=== PATIENT | male | born 1960 | race African-American/Black ===

== ENCOUNTER 2018-05-23 13:23 | Inpatient (IN) | payer OTHER ==
[2018-05-23 14:21] VITALS: BMI 37.6
--- NOTE | 2018-05-23 19:57 | HP ---
CIWA Score - Admission Criteria OASAS Guidelines: Admission for Medically Managed Detox: Requires at least one of the followin. CIWA greater than 12 2. Seizures within the past 24 hours 3. Delirium tremens within the past 24 hours 4. Hallucinations within the past 24 hours 5. Acute intervention needed for co occurring medical disorder 6. Acute intervention needed for co occurring psychiatric disorder 7. Severe withdrawal that cannot be handled at a lower level of care (continued vomiting, continued diarrhea, abnormal vital signs) requiring intravenous medication and/or fluids 8. Admission ROS S - HPI Chief Complaint: Seeking admission to Rehab. Allergies/Adverse Reactions: Allergies Allergy/AdvReac Type Severity Reaction Status Date / Time No Known Allergies Allergy Verified 05/23/18 17:07 History of Present Illness: 58 years old male is seeking admission to Rehab. This is his first admission to [facility]. He has been in previous Rehab at [place], [place]. He denies past medical history and suicidal ideation at this time. Exam Limitations: No Limitations - Ebola screening Have you traveled outside of the country in the last 21 days: No Have you had contact with anyone from an Ebola affected area: No Have you been sick,other than usual withdrawal symptoms: No Do you have a fever: No - Review of Systems Constitutional: No Symptoms Reported EENT: reports: No Symptoms Reported Respiratory: reports: No Symptoms reported Cardiac: reports: No Symptoms Reported GI: reports: No Symptoms Reported : reports: No Symptoms Reported Musculoskeletal: reports: No Symptoms Reported Integumentary: reports: No Symptoms Reported Neuro: reports: No Symptoms reported Endocrine: reports: No Symptoms Reported Hematology: reports: No Symptoms Reported Psychiatric: reports: No Sypmtoms Reported, Mood/Affect Appropiate, Orientated x3 Other Systems: Reviewed and Negative Patient History - Patient Medical History Hx Asthma: No Hx Chronic Obstructive Pulmonary Disease (COPD): No Hx Cardiac Disorders: No Hx Hypertension: No Hx Seizures: No Hx Diabetes: No Hx Gastrointestinal Disorders: No Hx Genitourinary Disorders: No Hx Sexually Transmitted Disorders: No Hx Renal Disease (ESRD): No Hx Depression: No Hx Suicide Attempt: No Hx Schizophrenia: No - Patient Surgical History Past Surgical History: Yes Hx Neurologic Surgery: No Hx Cataract Extraction: No Hx Cardiac Surgery: No Hx Lung Surgery: No Hx Breast Surgery: No Hx Breast Biopsy: No Hx Abdominal Surgery: Yes (umbilical hernia repair/exploratory sx) Hx Appendectomy: No Hx Cholecystectomy: No Hx Genitourinary Surgery: No Hx Section: No Hx Orthopedic Surgery: No Anesthesia Reaction: No - PPD History Previous Implant?: Yes Documented Results: Negative w/o proof Implanted On Prior [facility] Admission?: No PPD to be Administered?: Yes - Reproductive History Patient is a Female of Child Bearing Age (11 -55 yrs old): No (MALE) - Smoking Cessation Smoking history: Never smoked Have you smoked in the past 12 months: No Hx Chewing Tobacco Use: No Initiated information on smoking cessation: No - Substance & Tx. History Hx Alcohol Use: No Hx Substance Use: Yes Substance Use Type: Opiates Hx Substance Use Treatment: Yes ([place], [place]) - Substances Abused Heroin Route: Inhalation Frequency: Daily Amount used: 7 bags Age of first use: 33 Date of Last Use: 05/18/18 Xanax Route: Oral Frequency: 3-6 times per week Amount used: 6 mg. Age of first use: 57 Date of Last Use: 05/17/18 Family Disease History - Family Disease History Family History: Denies Admission Physical Exam [facility] - Vital Signs Vital Signs: Vital Signs - 24 hr 05/23/18 14:20 Temperature 97.1 F L Pulse Rate 69 Respiratory 18 Rate Blood Pressure 136/79 - Physical General Appearance: Yes: Within Normal Limits HEENTM: Yes: Within Normal Limits, EOMI, Normal ENT Inspection, Normal Voice, RODRIGUEZ, Other (uses prescription eyeglasses) Respiratory: Yes: Lungs Clear, Normal Breath Sounds, No Respiratory Distress Neck: Yes: Supple Breast: Yes: Breast Exam Deferred Cardiology: Yes: Regular Rhythm, Regular Rate Abdominal: Yes: Normal Bowel Sounds Genitourinary: Yes: Within Normal Limits Back: Yes: Normal Inspection Musculoskeletal: Yes: Within Normal Limits Extremities: Yes: Normal Inspection Neurological: Yes: Alert, Normal Mood/Affect Integumentary: Yes: Within Normal Limits, Warm Lymphatic: Yes: Within Normal Limits - Diagnostic (1) Opioid dependence Current Visit: Yes Status: Chronic Qualifiers: Substance use status: uncomplicated Qualified Code(s): F11.20 - Opioid dependence, uncomplicated (2) Benzodiazepine dependence Current Visit: Yes Status: Chronic Cleared for Admission [facility] - Detox or Rehab [facility] Level of Care: Observation Bed Claeared for Rehab Admission: Yes [facility] Breath Alcohol Content Breath Alcohol Content: 0 Urine Drug Screen - Results Drug Screen Negative: No Urine Drug Screen Results: BZO-Benzodiazepines, MTD-Methadone Inpatient Rehab Admission - Initial Determination Are CD services needed?: Yes Free of communicable disease: Yes Not in need of hospitalization: Yes - Rehab Admission Criteria Previous failed treatment: Yes Poor recovery environment: Yes Comorbidities: Yes Lacks judgement: No Patient is meeting Inpatient Rehab admission criteria:: Yes
[2018-05-23] MEDS ORDERED: MAGNESIUM CITRATE 300 ML BOTTLE PO PRN (20:01)
[2018-05-23] MEDS ORDERED: guaiFENesin/D-METHORPHAN HB 10 ML UNIT-DOSE CUPS PO PRN (20:01)
[2018-05-23] MEDS ORDERED: P-EPHED 60MG/TRIPROLIDI 2.5MG TABLET PO PRN (20:01)
[2018-05-23] MEDS ORDERED: MAG HYDROX/AL HYDROX/SIMETH 30 ML UNIT-DOSE CUP PO PRN (20:01)
[2018-05-23] MEDS ORDERED: MAGNESIUM HYDROX 2400MG/30ML ORAL SUSPENSION 30 ML CUP PO PRN (20:01)
[2018-05-23] MEDS ORDERED: MENTHOL/PHENOL 1 EACH UD MM PRN (20:01)
[2018-05-23] MEDS ORDERED: IBUPROFEN 400 MG TABLET (FP) PO PRN (20:01)
[2018-05-23] MEDS ORDERED: ACETAMINOPHEN 325 MG TABLET (FP) PO PRN (20:01)
[2018-05-23] MEDS ORDERED: LOPERAMIDE HCL 2 MG CAPSULE PO PRN (20:01)
[2018-05-23] MEDS ORDERED: TUBERCULIN PPD 5 TU/0.1ML VIAL ID ONE (21:22)
[2018-05-23] MEDS: THIAMINE HCL 100 MG TABLET (FP) PO SCH (21:36)
[2018-05-23] MEDS: PREGABALIN 100 MG CAPSULE PO SCH (21:36)
[2018-05-23] MEDS ORDERED: MELATONIN 5 MG TABLETS PO PRN (22:00)
[2018-05-23 23:22] LABS: URINE APPEARANCE CLEAR; URINE BILIRUBIN NEGATIVE (<2.0 mg/dL); URINE COLOR YELLOW; URINE GLUCOSE (UA) NEGATIVE (NEGATIVE); URINE KETONE NEGATIVE (NEGATIVE); URINE LEUK ESTERASE NEGATIVE (NEGATIVE); URINE NITRITE NEGATIVE (NEGATIVE); URINE PROTEIN NEGATIVE (NEGATIVE); URINE UROBILINOGEN NEGATIVE mg/dL (0.2-1.0)
[2018-05-24] MEDS: PREGABALIN 100 MG CAPSULE PO SCH (07:00)
[2018-05-24] MEDS: PRENATAL VITAMINS W/ FOLIC ACID TABLET (FP) PO SCH (11:07)
[2018-05-24 11:21] LABS: ALBUMIN 4.4 g/dl (3.4-5.0); ALK PHOS 80 U/L (45-117); ANION GAP 13 MMOL/L (8-16); BILIRUBIN,TOTAL 0.7 mg/dL (0.2-1); BLOOD UREA NITROGEN 22 mg/dL (7-18); CALCIUM 9.1 mg/dL (8.5-10.1); CHLORIDE 100 mmol/L (98-107); CO2 23 mmol/L (21-32); CREATININE 1.1 mg/dL (0.55-1.3); GLUCOSE,RANDOM 95 mg/dL (74-106); POTASSIUM 4.8 mmol/L (3.5-5.1); SGOT/AST 21 U/L (15-37); SGPT/ALT 21 U/L (13-61); SODIUM 136 mmol/L (136-145); TOT PROT 8.2 g/dl (6.4-8.2)
--- NOTE | 2018-05-24 11:47 | HP ---
Psychiatrist Admission - Data Date of interview: 05/24/18 Admission source: [facility] Identifying data: Patient is a 58 year old male, father of three, unemployed, domiciled, and is supported by [facility]. This is patient's first admission to rehab at [facility]. Patient admitted to for benzodiazepine dependence and opioid dependence. Medical History: umbilical hernia repair/exploratory sx Psychiatric History: Patient denies h/o psychiatric hospitalization, outpatient care, and suicide attempt. He reports accepting seroquel for insomnia when admitted to other detox/rehab facilities. Physical/Sexual Abuse/Trauma History: denies. Vital Signs: Vital Signs - 24 hr 05/23/18 05/23/18 05/24/18 14:20 22:25 00:30 Temperature 97.1 F L 98.6 F Pulse Rate 69 90 Respiratory 18 18 18 Rate Blood Pressure 136/79 142/83 05/24/18 05/24/18 03:30 07:06 Temperature 97.6 F Pulse Rate 67 Respiratory 18 17 Rate Blood Pressure 122/58 L Allergies/Adverse Reactions: Allergies Allergy/AdvReac Type Severity Reaction Status Date / Time No Known Allergies Allergy Verified 05/23/18 17:07 Date of last physical exam: 05/24/18 Concur with the findings of this exam: Yes - Substance Abuse/Tx History Hx Alcohol Use: Yes (Occasionally) Hx Substance Use: Yes (Heroin- 5-6 bags daily Xanac- 6 mg daily) Substance Use Type: Heroin Hx Substance Use Treatment: Yes (This is patient's first rehab.) Mental Status Exam - Mental Status Exam Alert and Oriented to: Time, Place, Person Cognitive Function: Good Patient Appearance: Well Groomed Mood: Hopeful Affect: Appropriate Patient Behavior: Appropriate, Cooperative Speech Pattern: Clear, Appropriate Voice Loudness: Normal Thought Process: Intact, Goal Oriented Thought Disorder: Not Present Hallucinations: Denies Suicidal Ideation: Denies Homicidal Ideation: Denies Insight/Judgement: Poor Sleep: Fair Appetite: Fair Muscle strength/Tone: Normal Gait/Station: Normal Psychiatric Findings - Problem List ([place] 1, 2,3) (1) Substance-induced sleep disorder Current Visit: Yes Status: Acute (2) Benzodiazepine dependence Current Visit: Yes Status: Chronic (3) Opioid dependence Current Visit: Yes Status: Chronic Qualifiers: Substance use status: uncomplicated Qualified Code(s): F11.20 - Opioid dependence, uncomplicated - Initial Treatment Plan Initial Treatment Plan: Psychoeducation provided. Detoxification in progress. Will order Seroquel 50mg qhs. Benefits and side effects discussed.
[2018-05-24] MEDS: PREGABALIN 50 MG CAPSULE PO SCH ×2 (14:15→22:06)
[2018-05-24] MEDS: THIAMINE HCL 100 MG TABLET (FP) PO SCH (22:04)
[2018-05-24] MEDS: QUEtiapine FUMARATE 50 MG TABLET PO SCH (22:06)
[2018-05-25] MEDS: PREGABALIN 50 MG CAPSULE PO SCH ×3 (06:51→21:59)
[2018-05-25] MEDS: PRENATAL VITAMINS W/ FOLIC ACID TABLET (FP) PO SCH (10:35)
[2018-05-25 16:01] LABS: HEMATOCRIT 45.4 % (35.4-49); HEMOGLOBIN 14.2 GM/dL (11.7-16.9); MCH 25.2 pg (25.7-33.7); MCHC 31.2 g/dl (32.0-35.9); MEAN CELL VOLUME 80.5 fl (80-96); MEAN PLT VOLUME 8.3 fl (7.5-11.1); PLATELET COUNT 280 K/MM3 (134-434); RBC 5.64 M/mm3 (4.00-5.60); RDW 15.9 % (11.9-15.9); WHITE BLOOD COUNT 4.8 K/mm3 (4.0-10.0)
[2018-05-25] MEDS: THIAMINE HCL 100 MG TABLET (FP) PO SCH (21:59)
[2018-05-25] MEDS: QUEtiapine FUMARATE 50 MG TABLET PO SCH (21:59)
[2018-05-26] MEDS: PREGABALIN 50 MG CAPSULE PO SCH (06:35)
[2018-05-26] MEDS: PRENATAL VITAMINS W/ FOLIC ACID TABLET (FP) PO SCH (10:13)
[2018-05-26] MEDS ORDERED: PREGABALIN 100 MG CAPSULE PO SCH ×2 (13:23→22:00)
[2018-05-26] MEDS ORDERED: PREGABALIN 50 MG CAPSULE PO SCH (14:00)
[2018-05-26] MEDS: THIAMINE HCL 100 MG TABLET (FP) PO SCH (21:54)
[2018-05-26] MEDS: PREGABALIN 100 MG CAPSULE PO SCH (21:54)
[2018-05-26] MEDS: QUEtiapine FUMARATE 50 MG TABLET PO SCH (21:54)
[2018-05-27] MEDS: PREGABALIN 100 MG CAPSULE PO SCH ×3 (07:00→21:49)
[2018-05-27] MEDS: PRENATAL VITAMINS W/ FOLIC ACID TABLET (FP) PO SCH (10:29)
[2018-05-27] MEDS: QUEtiapine FUMARATE 50 MG TABLET PO SCH (21:49)
[2018-05-27] MEDS: THIAMINE HCL 100 MG TABLET (FP) PO SCH (21:50)
[2018-05-28] MEDS: PREGABALIN 100 MG CAPSULE PO SCH ×3 (06:55→21:48)
[2018-05-28] MEDS: PRENATAL VITAMINS W/ FOLIC ACID TABLET (FP) PO SCH (11:29)
--- NOTE | 2018-05-28 13:35 | PN ---
[facility] Progress Note Note: PATIENT C/O SORE THROAT, NASAL CONGESTION WITH YELLOW NASAL DISCHARGE AND DRY COUGH. PATIENT DENIES TOBACCO USE, FEVER, SOB. Vital Signs Temperature 98.5 F 05/28/18 07:09 Pulse Rate 67 05/28/18 07:09 Respiratory Rate 20 05/28/18 07:09 Blood Pressure 131/94 05/28/18 07:09 O2 Sat by Pulse Oximetry (%) Laboratory Tests 05/23/18 05/24/18 05/24/18 22:00 07:40 07:40 WBC Cancelled Corrected WBC (auto) Cancelled RBC Cancelled Hgb Cancelled Hct Cancelled MCV Cancelled MCH Cancelled MCHC Cancelled RDW Cancelled Plt Count Cancelled MPV Cancelled Manual Slide Review Cancelled Platelet Comment Cancelled Sodium 136 Potassium 4.8 Chloride 100 Carbon Dioxide 23 Anion Gap 13 BUN 22 H Creatinine 1.1 Creat Clearance w eGFR > 60 Random Glucose 95 Calcium 9.1 Total Bilirubin 0.7 AST 21 ALT 21 Alkaline Phosphatase 80 Total Protein 8.2 Albumin 4.4 Urine Color Yellow Urine Appearance Clear Urine pH 7.0 Ur Specific [place] 1.021 Urine Protein Negative Urine Glucose (UA) Negative Urine Ketones Negative Urine Blood Negative Urine Nitrite Negative Urine Bilirubin Negative Urine Urobilinogen Negative Ur Leukocyte Esterase Negative RPR Titer 05/24/18 05/25/18 07:40 11:00 WBC 4.8 Corrected WBC (auto) RBC 5.64 H Hgb 14.2 Hct 45.4 MCV 80.5 MCH 25.2 L MCHC 31.2 L RDW 15.9 Plt Count 280 MPV 8.3 Manual Slide Review Platelet Comment Sodium Potassium Chloride Carbon Dioxide Anion Gap BUN Creatinine Creat Clearance w eGFR Random Glucose Calcium Total Bilirubin AST ALT Alkaline Phosphatase Total Protein Albumin Urine Color Urine Appearance Urine pH Ur Specific [place] Urine Protein Urine Glucose (UA) Urine Ketones Urine Blood Urine Nitrite Urine Bilirubin Urine Urobilinogen Ur Leukocyte Esterase RPR Titer Nonreactive PE; ALERT AND ORIENTED X 3 SKIN WARM AND DRY ENT: + NASAL CONGESTION AND STUFFINESS, REDNESS TO NASAL MUCOSA CAR S1S2 RESP B/L UPPER ANTERIOR LOBES WITH RHONCHI THAT CLEARS WITH COUGHING, + SCATTERED WHEEZES A/P; URI WHEEZING START ALBUTEROL INH PRN AMOXICILLIN 500MG TID X 7 DAYS ENCOURAGE ORAL FLUIDS' CONTINUE TO MONITOR CLINICALLY
[2018-05-28] MEDS ORDERED: PREGABALIN 100 MG CAPSULE PO SCH (14:00)
[2018-05-28] MEDS ORDERED: ALBUTEROL SO4 8 GM HFA INHALER IH PRN (14:00)
[2018-05-28] MEDS: AMOXICILLIN 500 MG CAPSULE (FP) PO SCH ×2 (14:22→21:48)
[2018-05-28] MEDS: QUEtiapine FUMARATE 50 MG TABLET PO SCH (21:48)
[2018-05-28] MEDS: THIAMINE HCL 100 MG TABLET (FP) PO SCH (21:48)
[2018-05-29] MEDS: AMOXICILLIN 500 MG CAPSULE (FP) PO SCH ×3 (06:38→21:58)
[2018-05-29] MEDS: PREGABALIN 100 MG CAPSULE PO SCH ×3 (06:38→21:58)
[2018-05-29] MEDS: PRENATAL VITAMINS W/ FOLIC ACID TABLET (FP) PO SCH (10:56)
[2018-05-29] MEDS: QUEtiapine FUMARATE 50 MG TABLET PO SCH (21:58)
[2018-05-29] MEDS: THIAMINE HCL 100 MG TABLET (FP) PO SCH (21:58)
[2018-05-30] MEDS: PREGABALIN 100 MG CAPSULE PO SCH ×3 (06:34→21:42)
[2018-05-30] MEDS: AMOXICILLIN 500 MG CAPSULE (FP) PO SCH ×3 (06:34→21:42)
[2018-05-30] MEDS: PRENATAL VITAMINS W/ FOLIC ACID TABLET (FP) PO SCH (11:19)
--- NOTE | 2018-05-30 14:42 | PN ---
Psychiatric Progress Note Vital Signs: Vital Signs Period Temp Pulse Resp BP Sys/Victor Pulse Ox Last 24 Hr 97.5 F 81 16-18 150/96 Date of Session: 05/30/18 Chief Complaint:: Discharge visit (coverage) : HPI: Case of a 58 y/o AA male admitted to [address] on 05/24/18, to address heroin + benzodiazepine (xanax) dependence. Directly referred from [facility] detoxification unit. Doing well. Uneventful hospital course. Patient is scheduled for discharge on 05/31/18. ROS: Unremarkable. Normal vitals. No evidence of cognitive impairment. Visible. Sociable. Medically stable. Current Medications: Active Medications Generic Name Dose Route Start Last Admin Trade Name Freq PRN Reason Stop Dose Admin Acetaminophen 650 mg 05/23/18 20:01 Tylenol - PO Q4H PRN FEVER Al Hydroxide/Mg Hydroxide 30 ml 05/23/18 20:01 Mylanta Oral Suspension - PO Q6H PRN DYSPEPSIA Albuterol Sulfate 2 puff 05/28/18 14:00 Ventolin Hfa Inhaler - IH Q4H PRN SHORT OF BREATH/WHEEZING Amoxicillin 500 mg 05/28/18 14:00 05/30/18 13:35 Amoxicillin - PO 500 mg TID BAKARI Administration Eucalyptus/Menthol/Phenol/Sorbitol 1 each 05/23/18 20:01 05/28/18 06:55 Cepastat Lozenge - MM 1 each Q4H PRN Administration SORE THROAT Guaifenesin 10 ml 05/23/18 20:01 Robitussin Dm - PO Q6H PRN COUGH Ibuprofen 400 mg 05/23/18 20:01 Motrin - PO Q6H PRN Pain level 4-6 Loperamide HCl 4 mg 05/23/18 20:01 Imodium - PO Q6H PRN DIARRHEA Magnesium Citrate 300 ml 05/23/18 20:01 Citroma - PO Q48H PRN CONSTIPATION Magnesium Hydroxide 30 ml 05/23/18 20:01 Milk Of Magnesia - PO DAILY PRN CONSTIPATION Melatonin 5 mg 05/23/18 22:00 Melatonin PO HS PRN INSOMNIA Pregabalin 100 mg 05/26/18 22:00 05/30/18 13:35 Lyrica - PO 05/31/18 06:01 100 mg TID BAKARI Administration Multivit/Folic Acid/Iron 1 tab 05/24/18 10:00 05/30/18 11:19 Vitamins (Sjr) - PO Not Given DAILY BAKARI Pseudoephedrine/Triprolidine 1 combo 05/23/18 20:01 05/28/18 06:55 Actifed - PO 1 combo TID PRN Administration NASAL CONGESTION Quetiapine Fumarate 50 mg 05/24/18 22:00 05/29/18 21:58 Seroquel - PO 50 mg HS BAKARI Administration Thiamine HCl 100 mg 05/23/18 22:00 05/29/18 21:58 Vitamin B1 - PO 100 mg HS BAKARI Administration Medication(s) Change(s): None. Patient is not on psychotropic medications. Current Side Effect: No Lab tests ordered: No Lab tests reviewed: Yes Provider note:: Chart reviewed. Patient is interviewed for assessment of mental status. Treatment goals are met. Mr Bradley is observed as jovial, well-mannered , active and energetic. Appears well rested. Doing fine. Patient declares that he is motivated to change his lifestyle, distance himself from substance users in order to maintain sobriety. He declines referrals. " I am relocating to [place]. I am traveling tomorrow. I will manage to get a provider there ". No acute medical issues. Mental status is stable. Patient is at his baseline. Mr Bradley is ready for discharge. Not a danger to self or others. Discussed with the Multidisciplinary team. Total face to face time:: 35 Mental Status Exam - Mental Status Exam Alert and Oriented to: Time, Place, Person Cognitive Function: Good Patient Appearance: Well Groomed (tall, imposing physical frame, overweight) Mood: Hopeful, Euthymic Affect: Appropriate, Normal Range Patient Behavior: Appropriate (pleasant, friendly), Cooperative Speech Pattern: Clear, Appropriate Voice Loudness: Normal Thought Process: Intact, Goal Oriented Thought Disorder: Not Present Hallucinations: Denies Suicidal Ideation: Denies Homicidal Ideation: Denies Insight/Judgement: Good Sleep: Well Appetite: Good Muscle strength/Tone: Normal Gait/Station: Normal Psychiatric Treatment Plan - Problem List (1) Benzodiazepine dependence Current Visit: Yes Comment: . (2) Opioid dependence Current Visit: Yes Qualifiers: Substance use status: uncomplicated Qualified Code(s): F11.20 - Opioid dependence, uncomplicated Comment: .
[2018-05-30] MEDS: QUEtiapine FUMARATE 50 MG TABLET PO SCH (21:42)
[2018-05-30] MEDS: THIAMINE HCL 100 MG TABLET (FP) PO SCH (21:42)
[2018-05-31] MEDS: AMOXICILLIN 500 MG CAPSULE (FP) PO SCH (06:26)
[2018-05-31] MEDS: PREGABALIN 100 MG CAPSULE PO SCH (06:26)
[2018-05-31 07:14] VITALS: BP 129/91; PULSE 77; TEMP 97.2
== END 2018-05-31 10:05 | disposition home or self-care (01) | DRG 772 ==
LOC: YASAS 13:23 → Y5N 19:08
PROVIDERS: ADMIT Psychiatry & Neurology Psychiatry; ATTEND Psychiatry & Neurology Psychiatry
PROC: HZ42ZZZ Group Counseling for Substance Abuse Treatment, Cognitive-Behavioral (ICD-10-PCS; principal; 2018-05-24)
DX: F11.20 Opioid dependence, uncomplicated (principal); F13.20 Sedative, hypnotic or anxiolytic dependence, uncomplicated; F19.282 Other psychoactive substance dependence with psychoactive substance-induced sleep disorder; J06.9 Acute upper respiratory infection, unspecified; Z98.890 Other specified postprocedural states
CPT/HCPCS: 36415; 80053; 81003; 85027; 86593